=== PATIENT | female | born 1970 | race Caucasian/White ===

== ENCOUNTER 2024-10-13 13:00 | Emergency (ER) | payer SELFPAY ==
--- NOTE | 2024-10-13 13:01 | ECG_ITS ---
Test Reason : cp Blood Pressure : */* mmHG Vent. Rate : 96 BPM Atrial Rate : 96 BPM P-R Int : 162 ms QRS Dur : 80 ms QT Int : 354 ms P-R-T Axes : 33 20 -11 degrees QTcB Int : 447 ms Normal sinus rhythm Possible Left atrial enlargement T wave abnormality, consider inferior ischemia Abnormal ECG No previous ECGs available Referred By: Mary Lou Garg Electronically Signed By: LENA DESOUZA MD
--- NOTE | 2024-10-13 13:38 | PC.NURSE ---
No call for triage
--- NOTE | 2024-10-13 13:50 | PC.NURSE ---
no call for triage
--- NOTE | 2024-10-13 14:06 | PC.NURSE ---
no call for triage
== END 2024-10-13 14:19 | disposition left against medical advice (07) ==
LOC: HO.ED 14:17
PROVIDERS: Emergency Provider Emergency Medicine
DX: R07.89 Other chest pain (principal)
CPT/HCPCS: 93005; 99281; 99282

== ENCOUNTER → 2024-10-13 13:01 | Outpatient (BNV) | payer SELFPAY | PROVIDERS: Emergency Provider Emergency Medicine; Visit Provider Internal Medicine Cardiovascular Disease | DX: R94.31 Abnormal electrocardiogram [ECG] [EKG] (principal); R07.9 Chest pain, unspecified | CPT/HCPCS: 93010 ==